=== PATIENT | female | born 1990 ===

== ENCOUNTER 2016-09-21 10:33 | Emergency (ER) | payer MEDICAID, OTHER ==
[2016-09-21 10:54] VITALS: TEMP 98.3
--- NOTE | 2016-09-21 11:50 | ED PDOC ---
Arrival/HPI - General Chief Complaint: Abdominal Pain Time Seen by Provider: 09/21/16 11:36 Historian: Patient - History of Present Illness Narrative History of Present Illness (Text): 09/21/16 11:26 Joanie Adhikari is a 26 year old female who presents to the emergency department complaining of numbness in left leg, right lower back pain, and pressure to groin area for three days. Patient is 34 weeks and that it is getting increasingly difficult to walk. Patient also notes that she experiences associated burning in urination for two days. Due to back pain, Patient reports taking 5 extra strength Tylenol twice a day yesterday and two days prior to that. Patient also notes that she has been on bed rest for two months and came to emergency department out concern due to her short cervix. Patient denies any vaginal bleeding, vaginal discharge, urinary symptoms, or any other complaint at this time. Time/Duration: < week Symptom Onset: Gradual Symptom Course: Worsening Severity Level: Mild Activities at Onset: Rest Context: Home Past Medical History - Provider Review Nursing Documentation Reviewed: Yes - Psychiatric Hx Psychophysiologic Disorder: No Hx Substance Use: No Family/Social History - Physician Review Nursing Documentation Reviewed: Yes Family/Social History: No Known Family HX Smoking Status: Never Smoked Hx Alcohol Use: No Hx Substance Use: No Allergies/Home Meds Allergies/Adverse Reactions: Allergies No Known Allergies Allergy (Verified 09/21/16 10:48) Home Medications: Home Meds Medication Instructions Recorded Confirmed Ferrous Sulfate [Ferosul] 1 tab PO TID 09/21/16 09/21/16 Multivit/Folic Acid/I 1 tab PO DAILY 09/21/16 09/21/16 [] Review of Systems - Review of Systems Constitutional: absent: Fevers, Night Sweats Eyes: absent: Vision Changes ENT: absent: Hearing Changes Respiratory: absent: SOB, Cough Cardiovascular: absent: Chest Pain Gastrointestinal: absent: Abdominal Pain Genitourinary Female: Other (Pressure to groin area). absent: Urine Output Changes, Vaginal Bleeding, Vaginal Discharge Musculoskeletal: Back Pain, Other (numbness down right leg) Skin: absent: Rash Neurological: absent: Headache, Dizziness, Facial Droop Endocrine: absent: Diaphoresis Physical Exam - Physical Exam Narrative Physical Exam (Text): Constitutional: No acute distress. Head: Normocephalic. Atraumatic. Eyes: PERRL. ENT: Moist mucous membranes. Neck: Supple. Cardiovascular: Regular rate. Chest: No tenderness. Respiratory: Clear to auscultation bilaterally. GI: Gravid uterus. Back: No CVA tenderness. Musculoskeletal: No tenderness or swelling. Skin: No rash. Neurologic: Alert, no focal deficit. Vital Signs Reviewed: Yes Vital Signs Temp Pulse Resp BP Pulse Ox 09/21/16 12:00 89 18 107/73 95 09/21/16 10:52 98.3 F 96 H 17 105/74 95 Temperature: Afebrile Blood Pressure: Normal Pulse: Tachycardic Respiratory Rate: Normal Appearance: Positive for: Well-Appearing, Non-Toxic, Comfortable Pain Distress: None Mental Status: Positive for: Alert and Oriented X 3 Medical Decision Making ED Course and Treatment: 09/21/16 11:26 Impression: 26 year old female complaining of numbness down right leg from her right lower back pain, and pressure to groin area for 3 days. Plan: -- OB Ultrasound -- Urine Culture -- Type and Screen -- Labs -- Reassess and disposition Progress Notes: 09/21/16 11:30 Patient reported acetaminophen ingestion is less than 8 grams per day unlikely to cause any significant liver damage. Will check acetaminophen levels but no empiric treatment indicated. Educated on proper dosage of acetaminophen. 09/21/16 11:51 Leaving Against Medical Advice (AMA): The patient is choosing to leave against medical advice. I have personally explained to the patient that choosing to do so may result in permanent bodily harm or . I have discussed at great length that without further evaluation and monitoring there may be unforeseen circumstances and/or deterioration causing permanent bodily harm or as a result of their choice. The patient is alert, oriented, and shows the mental capacity to make clear decisions regarding the patients health care at this time. The patient continues to wish to leave against medical advice. In light of the patients decision to leave against medical advice, follow-up has been arranged and the patient is aware of the importance to following up as instructed. The patient has been advised that they should return to the emergency room immediately if they change their mind at any time, or if their condition begins to change or worsen in any way. The patient left AMA prior to her UA result or her lab draw. - Lab Interpretations Lab Results: Lab Results 09/21/16 11:50: Urine Color Yellow, Urine Appearance Cloudy, Urine pH 7.0, Ur Specific [place] 1.020, Urine Protein Negative, Urine Glucose (UA) Negative, Urine Ketones Negative, Urine Blood Negative, Urine Nitrate Negative, Urine Bilirubin Negative, Urine Urobilinogen 0.2, Ur Leukocyte Esterase Trace H, Urine RBC 0 - 2, Urine WBC 0 - 2, Ur Epithelial Cells Many, Amorphous Sediment Moderate, Urine Bacteria Mod - RAD Interpretation Radiology Orders: 09/21/16 11:37 OB TRANSVAGINAL [US] Stat - Scribe Statement The provider has reviewed the documentation as recorded by the Scribe Marbella Berman Provider Scribe Attestation: All medical record entries made by the Scribe were at my direction and personally dictated by me. I have reviewed the chart and agree that the record accurately reflects my personal performance of the history, physical exam, medical decision making, and the department course for this patient. I have also personally directed, reviewed, and agree with the discharge instructions and disposition. Disposition/Present on Arrival - Present on Arrival Any Indicators Present on Arrival: No History of DVT/PE: No History of Uncontrolled Diabetes: No Urinary Catheter: No History of Decub. Ulcer: No History Surgical Site Infection Following: None - Disposition Have Diagnosis and Disposition been Completed?: No Diagnosis: Pelvic pressure in , Back pain Disposition: AGAINST MEDICAL ADVICE Disposition Time: 11:51 Condition: STABLE Referrals: Jason Gill, [Primary Care Provider] - Follow up with primary
[2016-09-21 12:03] LABS: URINE BILIRUBIN NEGATIVE (NEGATIVE); URINE BLOOD NEGATIVE (NEGATIVE); URINE GLUCOSE (UA) NEGATIVE (NEGATIVE); URINE KETONE NEGATIVE (NEGATIVE); URINE LEUKOCYTE ESTERASE TRACE Leu/uL (NEGATIVE); URINE PROTEIN NEGATIVE mg/dL (<30 mg/dL); URINE UROBILINOGEN 0.2 E.U./dL (<1 E.U./dL)
[2016-09-21 12:08] LABS: URINE APPEARANCE CLOUDY (CLEAR); URINE COLOR YELLOW (YELLOW)
[2016-09-21 12:09] LABS: URINE AMORPHOUS SEDIMENT MODERATE; URINE BACTERIA MOD (NEG); URINE EPITHELIAL CELLS MANY /hpf (0-5); URINE RBC 0 - 2 /hpf (0-2); URINE WBC 0 - 2 /hpf (0-6)
[2016-09-21 16:04] VITALS: BP 110/80; PULSE 89; RESP 17; O2SAT 97
== END 2016-09-21 12:30 | disposition left against medical advice (07) ==
LOC: ED 10:33
DX: O26.893 Other specified pregnancy related conditions, third trimester (principal); R10.2 Pelvic and perineal pain; M54.5 Low back pain; Z3A.34 34 weeks gestation of pregnancy